=== PATIENT | female | born 1960 | race Caucasian/White ===

== ENCOUNTER 2025-08-21 07:35 | Observation (INO) | payer MEDICARE, MEDICAID ==
--- NOTE | 2025-08-13 16:26 | ELECTROCARDIOGRAPH REPORT ---
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 MABEL Gee Measurements Intervals [place] Rate: 68 P: 45 WA: 182 QRS: 55 QRSD: 97 T: 17 QT: 402 QTc: 428 Interpretive Statements Sinus rhythm Probable left atrial enlargement Electronically Signed On 08-13-2025 16:43:[address] MABEL Gee Please click the below link to view image of tracing.
[2025-08-13 16:38] LABS: MEAN PLATELET VOLUME 7.8 FL (7.4-10.4); PRE OP HEMATOCRIT 45.5 % (35.0-45.0); PRE OP HEMOGLOBIN 15.2 g/dL (12.0-16.0); PRE OP PLATELET COUNT 380 X10'3 (140-440); PRE OP WHITE BLOOD COUNT 8.5 10'3 (4.8-10.8); RED CELL DISTRIBUTION WIDTH 15.3 % (11.5-14.5)
[2025-08-13 17:21] LABS: CREATININE 0.81 MG/DL (0.40-0.90); PRE OP ALT 21 U/L (30-65); PRE OP ANION GAP 8 (8-16); PRE OP AST 19 U/L (10-37); PRE OP BILIRUB, TOTAL 0.6 MG/DL (0.0-1.0); PRE OP GLUCOSE 106 MG/DL (70-104); PRE OP POTASSIUM 3.9 MMOL/L (3.4-5.1); PRE OP SODIUM 135 MMOL/L (135-145); TOTAL CARBON DIOXIDE 28.5 MMOL/L (24-32); eGFR 71 ML/MIN
[~2025-08-21] VITALS: Ht 154.9 cm; Wt 87.3 kg
[2025-08-21] VITALS (14 sets, daily range): BP systolic 93–132; BP diastolic 55–73; PULSE 53–65; RESP 11–18; TEMP 96.9–97.6; O2SAT 95–99
[~2025-08-21 07:35] MED LIST: ATEN-169 PO; CHOL50004 PO; Cefazolin 3 GM/100ML NS IVPB 100 ML IV ONE; DAPA10TA PO; HYDR12.55 PO; HYDROmorphone/PF 0.2 MG/ML SYRINGE IV PRN; LISI40TA20 PO; PCA WASTE DOCUMENTATION 1 MG ML MC SCH; SIMV-341 PO; TIRZ7.5P SQ; bisacodyl 10mg suppository rectal RC PRN; magnesium hydroxide 30ml (MOM) UD suspension PO PRN; ondansetron/PF 4mg/2ml inj IV PRN
[2025-08-21] MEDS: VANCOMYCIN/H2O 1.5g/300mL PB 300 ML IV ONE (09:55)
[2025-08-21] MEDS: ringers solution, lacted 1,000 ML IV SCH ×2 (09:55→14:29)
[2025-08-21] MEDS: ceFAZolin 2gm/dext,iso 50mL 50 ML IV ONE (09:56)
[2025-08-21] MEDS ORDERED: enalaprilat 1.25mg/ml 2ml vial IV PRN (10:00)
[2025-08-21] MEDS ORDERED: HYDROmorphone/PF 0.2 MG/ML SYRINGE IV PRN ×2 (10:00)
[2025-08-21] MEDS ORDERED: fentaNYL/PF 50MCG/1 ML 2ML syringe IV PRN ×2 (10:00)
[2025-08-21] MEDS ORDERED: morphine 4 MG/ML inj SYRINge IV PRN (10:00)
[2025-08-21] MEDS ORDERED: ondansetron/PF 4mg/2ml inj IV PRN (10:00)
[2025-08-21] MEDS ORDERED: labetalol 20mg/4ml (5mg/ml) syringe IV PRN (10:00)
[2025-08-21] MEDS ORDERED: ROPIVAcaine 0.5% (5mg/ml) 30ml vial ONE ×3 (10:15→11:52)
[2025-08-21] MEDS ORDERED: fentaNYL/PF 50MCG/1 ML 2ML syringe ONE (11:30)
[2025-08-21] MEDS ORDERED: MIDAZolam 1 MG/ML 5ML VIAL ONE (11:30)
[2025-08-21] MEDS ORDERED: propofol inj 20 ML IV ONE (11:50)
--- NOTE | 2025-08-21 13:52 | ANESTHESIA RECORDS ---
Nerve Block Providers to CC ~ Diagnosis: Nerve Block requested by: RADHA MADDOX MD Neuraxial/Peripheral Nerve Block requested for Post-operative analgesia by Physician above DIAGNOSIS: Post-operative pain. (Body Area) Shoulder: [ ] Arm: [ ] Hand: [ ] Hip: [ ] Knee: [ Right ] Ankle: [ ] Foot: [ ] Leg: [ ] Abdomen: [ ] Other: [ ] Post-operative pain expected to be/is inadequately managed by oral or IV medicines. Regional anesthetic expected to facilitate rehabilitation and/or discharge from facility. Other:[ ] Procedure Performed: Femoral / Saphenous: Right Time out Done?: Yes Time of Time out: 14:00 Procedure Details: PROCEDURE DETAILS: Risks, benefits and alternatives explained Informed consent obtained, and patient wishes to proceed Conscious sedation with indicated monitors Patient positioned, pertinent anatomy defined, sterile technique used Needle used: [ ] 3 1/8 inch Stimuplex Ultra 22ga [x ] 4 inch Stimuplex Ultra 20ga [ ] 6 inch Stimuplex Ultra 20ga [ ] 6 inch, Quikbloc over the needle catheter set 20ga [ ] 4 inch Quikbloc over the needle catheter set 20ga [ ]Other: [ ] Loss of twitch @ [ N/A ]mA [x ] Single Injection [ ] Catheter Ultrasound Guidance Used: [x ] Yes [ ] No Attempts:[ once ] Medicines injected: [x ]Clonidine Amt:[ 80 mcgs ] [x ]Dexamethasone Amt:[____4 mgs ] [x ]Ropivacaine Amt:[ 0.5% 30 cc ] [ ]Bupivacaine Amt:[ ] [ ]Lidocaine Amt:[ ] [ ]Exparel 1.33%:[ ] [ ]Epinephrine Amt[ ] [ ]Other: [ ] Intermittent aspiration during local anesthetic administration No symptoms of intraneural or intravenous injection Patient tolerated procedure well Comments Rt Adductor Canal blk Procedure done after surgery under Spinal anesthesia. Pt supine with Rt leg rotated to Rt slightly. Easy visualization of Adductor Canal with ultra sound anterolateral to Femoral artery at the junction of upper and middle third of thigh. Able to see the tip of the needle and injected local anesthetic with the ultrasound. 5 cc of local anesthetic is injected into nerve to Vastus medialis and few cc is injected into ant femoral cutaneous nerves. No Pain or discomfort during injection. MILTON STAHL MD Aug 21, 2025 13:52
--- NOTE | 2025-08-21 13:58 | OPERATIVE REPORT ---
Operative Report Operative Report OPERATIVE REPORT [facility] [address] [place] [address] Date of service: August 21, 2025 PREOPERATIVE DIAGNOSIS M17.11.16 Primary osteoarthritis of right knee POSTOPERATIVE DIAGNOSIS M17..16 Primary osteoarthritis of right knee Operation Performed 08920 Total Knee Arthroplasty with this modifier: [place] [address] Computer Assisted Navigation Musculoskeletal - Imageless 26590 Remote therapeutic monitoring; device supply with scheduled recordings every 30 days. Procedure: Computer-assisted, robotically-assisted, right total knee a rthroplasty. Surgeon: Dr. Joselo Morataya Pill Coater: Eli Byrd PA-C Anesthesiologist: Dr. Tejeda Anesthesia: Spinal anesthetic and regional blocks Indications: 65-year-old female who has chronic osteoarthritis of the right knee with severe pain and limitation of activities despite extensive non- operative management. This patient has had extensive conservative treatment of knee joint arthritis, including rest, external joint support, anti-inflammatory medications, physical therapy, and corticosteroid injection. Physical therapy has been provided, along with a home exercise program prior to making the decision to proceed with surgical treatment. This therapeutic intervention did not provide any substantial relief of symptoms or improvement in function. The patient has been utilizing a cane, set of crutches, or walker, for more than 3 months prior to deciding to proceed with surgery. These interventions have not provided sufficient relief of pain to allow improvement in function. The patient has utilized non-steroidal anti-inflammatory medications for relief of pain over an extended period of time (more than 2 months), and has not experienced sufficient improvement in symptoms. Despite these treatments, this patient has continued difficulties with pain and limited function. They are unable to walk long distances, do vigorous activities, sit or sleep comfortably. Total knee replacement is the next reasonable step in terms of treatment. 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 This facilitated operative exposure, manipulation and handling of tissues, placement of any implants, and accomplishment of wound closure. Findings: There was indeed a very severely arthritic knee, with loss of cartilage, exposed bone, and marginal osteophytes. The lateral compartment was particularly bad. A 15 degree valgus deformity and 3 degree flexion contracture were measured preoperatively. Post operative alignment was 1 degree valgus, and 1 degree extension. Complications: None Estimated Blood Loss: 200 mL Implants: A Alia Persona CR total knee system was utilized with a size nine right femoral component, a size E right tibial component with a smart stem, and a 32 mm patellar component. A 10 mm medial congruent right tibial insert was utilized. The [employer] robotically assisted total knee arthroplasty system and computer was utilized. Procedure: The risks, benefits, expected results, and possible complications of the planned procedure had been explained to the patient and informed consent obtained. The patient was taken to the operating room and underwent a spinal anesthetic. The patient was placed in the supine position on the operating table, and the right leg was prepped and draped in the usual fashion. A timeout was taken prior to surgery, confirming patient identification, operative side operative site, planned procedure, administration of pre-operative antibiotics, site marking, and presence of all necessary implants and instruments, x-rays and equipment. A standard anterior, slightly lateral approach was performed with a medial parapatellar arthrotomy, and a VMO split. Time was then spent removing excessive synovial tissue and exposing the medial and lateral gutters, as well as moving the anterior sections of the residual menisci. The patella was mobilized to be able to be retracted laterally. This gave exposure of the anterior aspect of the knee. Attention was then directed to the patella. An oscillating saw was utilized to make a flat cut in a freehand manner, removing approximately 9 mm of thickness. The patella was then sized and drilled for the appropriate size patella implant. Infrared arrays were then placed on the distal shaft of the femur anteriorly, and the proximal tibia medially. Utilizing the [employer] computer system, the hip, knee, and ankle were landmarked in usual fashion. The initial alignment measurements were then taken confirming the above listed deformity. Surgical planning was then carried out on the computer, confirming alignment of components, sizing, and gap balancing. Appropriate soft tissue releases were performed. The dental assistant teacher surgeon was instrumental in maintaining exposure and tissue management and protecting vital structures. The robot was then utilized to perform all distal femoral cuts. The femur was prepared in 4 degrees of flexion and neutral coronal alignment. The robot was then utilized to cut the proximal tibia in 5 degrees of flexion and neutral omar nal alignment. The computer was then utilized to check longitudinal alignment and soft tissue balance, and this confirmed excellent alignment. Next the dynamic balancing block was utilized to check and adjust soft tissue balancing. Finally, attention was directed to the proximal tibia. The implant was sized and properly rotated, the central drill, and the fin punch performed. Final check of alignment and balancing was then carried out, as well as final removal and cleaning up of soft tissue such as meniscal remnants and osteophytes. A tourniquet was inflated to 300 mmHg after exsanguination of the leg with an Esmarch. Cement was then mixed; 2 batches were utilized, mixed together, for the tibia, the femur and the patella. The cut surface of the tibia was thoroughly lavaged with the pulsating lavage and then dried. The tibia was impacted with the mallet, seating it quite nicely in its proper rotational alignment. Excess cement was removed from around the margins. The femoral cuts were cleaned with a pulsating lavage and then dried with the lap sponges, and the femur was impacted into position with a mallet. The patella was held firmly in place with a clamp. Excess cement was removed around the margins of the components as the cement cured. Pressure was held on the femoral component and tibia by placing a spacer and bringing the leg to full extension and applying axial and hypere xtension force. Upon complete hardening of all cement, the knee was inspected and excess cement removed. We lavaged the knee to wash out any debris and checked to make sure we had no impinging cement. The trial spacer was replaced and overall alignment c hecked with computer, ensuring we had full extension of the knee, and appropriate medial and lateral soft tissue balance, as well as flexion and extension balance. The tourniquet was deflated and hemostasis obtained with electrocautery. The wound was irrigated thoroughly one more time and then dried with lap sponges. The final tibial spacer was impacted and locked into the locking mechanism without difficulty. After final irrigation and suction of excess fluid, the knee was infiltrated with our intraoperative local anaesthetic mixture for postoperative pain control. The tibial and femoral navigation pins and arrays were removed. The tourniquet was then deflated, tourniquet time was 15 minutes. The wound was then closed in layers including retinacular closure, subcutaneous tissue, and skin. A sterile dressing was applied and the patient was returned to the recovery room in satisfactory condition. In the recovery area the remote monitoring station was dispensed to the patient and family. Instructions were given for its usage and pressure supervisor once the patient got home. We also confirmed the patient had installed the [employer] mobility software, and we ensured that the patient was enrolled in appropriate software platform from our end. Remote monitoring was initiated at the preoperative appointment and the devices used for remote monitoring implanted and dispensed today. Electronically Signed by: Joselo Morataya MD Doctor, Orthopedic Surgery Signed on: 08/21/2025 01:57 PM JOSELO MORATAYA MD Aug 21, 2025 13:58
[2025-08-21] MEDS: EMPAGLIFLOZIN 25 MG TABLET PO SCH (14:30)
[2025-08-21] MEDS ORDERED: DEXTROSE 15 GM of carb/4 tabs (each vial/BOTTLE has 4 tablets) PO PRN ×2 (14:35)
[2025-08-21] MEDS ORDERED: glucagon, human recombinant 1mg kit SUBCUT PRN (14:35)
[2025-08-21] MEDS ORDERED: dextrose 50%-water 50ml dispensing syringe IV PRN ×2 (14:35)
[2025-08-21] MEDS: potassium cl 20mEq in 1/2 NS 1,000 ML IV SCH (14:42)
[2025-08-21] MEDS: oxyCODONE IR 5mg (immed. release) tablet PO PRN (19:19)
[2025-08-21] MEDS: ceFAZolin/D5W- 1GM premix 50 ML IV SCH (21:00)
[2025-08-22] VITALS: BP 113/64; PULSE 65; RESP 16; TEMP 97.5; O2SAT 96
[2025-08-22] MEDS: vancomycin/NS 1 GM ADD-VANTAGE 250 ML IV SCH (02:08)
[2025-08-22 04:00] VITALS: RESP 16
[2025-08-22 05:43] LABS: MEAN PLATELET VOLUME 7.9 FL (7.4-10.4); RED CELL DISTRIBUTION WIDTH 15.2 % (11.5-14.5)
[2025-08-22 06:00] VITALS: BP 113/63; PULSE 56; RESP 14; TEMP 97.6; O2SAT 94
[2025-08-22 06:09] LABS: TOTAL CARBON DIOXIDE 25.0 MMOL/L (24-32)
--- NOTE | 2025-08-22 06:58 | DISCHARGE SUMMARY ---
Discharge Summary Ortho [facility] ~ Discharge Summary *Problems/Diagnosis: (1) S/P total knee arthroplasty Status: Acute Admission Diagnosis: osteoarthritis Discharge Diagnosis\Comment: see above Operations\Procedures see above Consultants: none Complications: none Condition on DC: Stable Discharge Summary: Patient underwent Right TKA and was admitted on date of surgery. Surgery went without complication, admission uneventful. Patient meet PT discharge criteria. Patient will be discharged home today. Total Time Spent on D/C: Up to 30 Minutes Medications Home Meds: Home Medications Active Reported Mounjaro (Tirzepatide) 7.5 Mg/0.5 Ml Pen.injctr 7.5 Mg SQ Q7D Hydrochlorothiazide 12.5 Mg Tablet 1 Tab PO DAILY 30 Days Farxiga (Dapagliflozin Propanediol) 10 Mg Tablet 1 Tab PO DAILY Tenormin (Atenolol) 50 Mg Tablet 1 Tab PO HS Zocor (Simvastatin) 10 Mg Tablet 1 Tab PO HS Vitamin D3 (Cholecalciferol (Vitamin D3)) 125 Mcg (5000 Unit) Capsule 1 Cap PO D AILY Lisinopril* (Lisinopril) 40 Mg Tablet 1 Tab PO DAILY Supervising Physician Supervising Physician: Dr. Joselo Morataya Problem Qualifiers (1) S/P total knee arthroplasty: Qualified Codes: Z96.651 - Presence of right artificial knee joint BRIANNE HENNESSY PAC Aug 22, 2025 06:58
[2025-08-22 10:00] VITALS: BP 104/59; PULSE 56; RESP 16; TEMP 98; O2SAT 98
[2025-08-22 11:40] VITALS: RESP 15
[2025-08-22] MEDS: oxyCODONE IR 5mg (immed. release) tablet PO PRN (11:40)
[2025-08-24] MEDS ORDERED: Tirzepatide (Mounjaro) 7.5 MG INJECTION SQ SCH (07:35)
== END 2025-08-22 17:42 | disposition home or self-care (01) ==
LOC: ORTHO 4S 07:35 → UNDOADMIN 08:41 → PAS IN 08:41 → ORTHO 4S 15:50 → PAS IN 15:50 → UNDODISIN 08-22 16:16
PROVIDERS: ADMIT Orthopaedic Surgery; ATTEND Orthopaedic Surgery
DX: M17.11 Unilateral primary osteoarthritis, right knee (principal); I10 Essential (primary) hypertension; E11.9 Type 2 diabetes mellitus without complications; E78.5 Hyperlipidemia, unspecified; M25.561 Pain in right knee; E66.9 Obesity, unspecified; Z68.36 Body mass index [BMI] 36.0-36.9, adult; Z79.899 Other long term (current) drug therapy; Z98.890 Other specified postprocedural states
CPT/HCPCS: 20985; 27447; 80051; 80053; 82948; 83036; 93005; 96365; 96366; 96367; 97161; A4215; A7000; C1713; C1776; G0378; J1171; J3375; J3480; J7120; Q0163; 36415; 85025; 87081; 97110; 97116; 97530; A6449; C9250; J0690; J2250; J2312; J2405; J2704; J2795; J3010; J3373